=== PATIENT | male | born 1985 | race Caucasian/White ===

== ENCOUNTER 2019-12-05 18:56 | Emergency (ER) | payer OTHER ==
[~2019-12-05] VITALS: Ht 177.8 cm; Wt 74.8 kg
[2019-12-05 19:58] VITALS: BP 135/87
== END 2019-12-05 19:59 | disposition home or self-care (01) ==
LOC: ER 18:56
DX: N48.89 Other specified disorders of penis (principal); R23.8 Other skin changes; L29.8 Other pruritus; F17.210 Nicotine dependence, cigarettes, uncomplicated